=== PATIENT | male | born 1940 | race Caucasian/White ===

== ENCOUNTER 2018-04-25 11:45 | Inpatient (IN) | payer MEDICARE ==
[~2018-04-25] VITALS: Ht 172.7 cm; Wt 93.9 kg
[2018-04-25 11:45] VITALS: BP_SYST 120
[2018-04-25] MEDS ORDERED: NACL 0.9% 1,000 ML IV ONE (12:15)
[2018-04-25 12:57] LABS: BASOPHILS % (AUTO) 0.2 % (0.0-2.0); EOSINOPHILS # (AUTO) 0.2 K/uL (0.0-0.4); EOSINOPHILS % (AUTO) 3.9 % (0.0-4.0); HEMOGLOBIN 11.4 g/dL (14.0-18.0); LYMPHOCYTES # (AUTO) 0.1 K/uL (1.0-5.5); LYMPHOCYTES % (AUTO) 2.6 % (20.5-51.5); MEAN CORPUSCULAR HEMOGLOBIN 33 pg (27-31); MEAN CORPUSCULAR HGB CONC 33 % (32-36); MEAN CORPUSCULAR VOLUME 100 fL (79.0-98.0); MONOCYTES # (AUTO) 0.4 K/uL (0.0-1.0); NEUTROPHILS # (AUTO) 3.2 K/uL (1.8-7.7); NEUTROPHILS % (AUTO) 83.3 % (40.0-70.0); PLATELET COUNT (AUTO) 110 K/uL (130-430); RED BLOOD CELL COUNT(AUTO) 3.42 MIL/uL (4.2-6.2); RED CELL DISTRIBUTION WIDTH 16.3 % (9.0-15.0); WHITE BLOOD COUNT (AUTO) 3.9 K/uL (4.8-10.8)
[2018-04-25 13:04] LABS: ANION GAP 8 (5-15); CALCIUM 8.1 mg/dL (8.4-11.0); CHLORIDE 103 mmol/L (98-107); CREATININE 1.79 mg/dL (0.55-1.30); GLUCOSE 123 mg/dL (70-99); POTASSIUM 3.7 mmol/L (3.5-5.1); SODIUM SERUM 135 mmol/L (136-145); UREA NITROGEN, BLOOD 40 mg/dL (8-21)
[2018-04-25 13:13] LABS: PROTHROMBIN TIME 9.9 SECS (9.5-12.5)
[2018-04-25 13:19] LABS: ALANINE AMINOTRANSFERASE 23 U/L (12-78); ALBUMIN 2.7 g/dL (3.4-4.8); ASPARTATE AMINOTRANSFERASE 13 U/L (10-37); TOTAL BILIRUBIN 0.6 mg/dL (0.0-1.0)
[2018-04-25] MEDS ORDERED: PREDNISONE 20 MG TABLET PO ONE (13:30)
[2018-04-25] MEDS ORDERED: LORazepam 2 MG/ML VIAL IVP PRN (15:00)
[2018-04-25] MEDS ORDERED: POTASSIUM CHLORIDE 20 MEQ TAB.PRT.SR PO PRN (15:00)
[2018-04-25] MEDS ORDERED: MORPHINE 2 MG/ML INJ. SYRINGE IVP PRN ×2 (15:00)
[2018-04-25] MEDS ORDERED: ONDANSETRON HCL 4 MG/2 ML VIAL IVP PRN (15:00)
[2018-04-25] MEDS ORDERED: DOCUSATE SODIUM 100 MG CAPSULE PO PRN (15:00)
[2018-04-25] MEDS ORDERED: MAGNESIUM SULFATE 50 ML IV PRN (15:00)
[2018-04-25] MEDS ORDERED: ACETAMINOPHEN 325 MG TABLET PO PRN (15:00)
[2018-04-25] MEDS ORDERED: MUPIROCIN 2% TOPICAL OINTMENT 22 GM NS PRN (15:00)
[2018-04-25] MEDS ORDERED: BORT3.5V IV (15:03)
[2018-04-25] MEDS ORDERED: DITXL5 PO (15:03)
[2018-04-25] MEDS ORDERED: CALC-808 PO (15:03)
[2018-04-25] MEDS ORDERED: FLUT16SP16 NS (15:03)
[2018-04-25] MEDS ORDERED: DOCU-144 PO (15:03)
[2018-04-25] MEDS ORDERED: ZOLE4VIA IV (15:03)
[2018-04-25] MEDS ORDERED: HYDR12.585 PO (15:03)
[2018-04-25] MEDS ORDERED: ASPI-1153 PO (15:03)
[2018-04-25] MEDS ORDERED: SIMV20TA6 PO (15:03)
[2018-04-25] MEDS ORDERED: TIZA4TAB4 PO (15:03)
[2018-04-25] MEDS ORDERED: ACYC400T PO (15:03)
[2018-04-25] MEDS ORDERED: DEC4 PO (15:03)
[2018-04-25] MEDS ORDERED: HYT1 PO (15:03)
[2018-04-25] MEDS ORDERED: LENA2.5C PO (15:03)
[2018-04-25] MEDS ORDERED: LISI40TA4 PO (15:03)
[2018-04-25] MEDS ORDERED: PSYL3.4P6 PO (15:03)
[2018-04-25 15:05] VITALS: BP_SYST 167
[2018-04-25] MEDS ORDERED: ACYC400T5 PO (15:41)
[2018-04-25] MEDS: NACL 0.9% 1,000 ML IV SCH (15:46)
[2018-04-25] MEDS ORDERED: cefTRIAXone 1 GM in D5W 50 ML IV ONE (16:00)
[2018-04-25 16:40] VITALS: BP_SYST 103
[2018-04-25 20:00] VITALS: BP_SYST 102
[2018-04-25] MEDS: HEPARIN SODIUM,PORCINE 5000 UNITS/ML VIAL SUBCUT SCH (20:57)
[2018-04-25] MEDS ORDERED: ZOLPIDEM TARTRATE 5 MG TABLET PO PRN (21:00)
[2018-04-26] VITALS: BP_SYST 118
[2018-04-26] MEDS: NACL 0.9% 1,000 ML IV SCH ×2 (01:52→13:00)
[2018-04-26 05:18] LABS: BILIRUBIN,URINE NEGATIVE (NEGATIVE); BLOOD, URINE NEGATIVE (NEGATIVE); CLARITY/URINE CLEAR (CLEAR); COLOR,URINE YELLOW (YELLOW); GLUCOSE,URINE NEGATIVE (NEGATIVE); KETONES,URINE NEGATIVE (NEGATIVE); LEUKOCYTE ESTERASE ,URINE NEGATIVE (NEGATIVE); NITRITE, URINE NEGATIVE (NEGATIVE); PH,URINE 5.5 (5.0-8.0); PROTEIN URINE NEGATIVE (NEGATIVE); UROBILINOGEN,URINE 0.2 (0.2-1.0)
[2018-04-26 06:29] LABS: BASOPHILS % (AUTO) 0.1 % (0.0-2.0); EOSINOPHILS # (AUTO) 0.3 K/uL (0.0-0.4); EOSINOPHILS % (AUTO) 6.9 % (0.0-4.0); HEMATOCRIT 32.2 % (36-54); HEMOGLOBIN 10.8 g/dL (14.0-18.0); LYMPHOCYTES # (AUTO) 0.2 K/uL (1.0-5.5); LYMPHOCYTES % (AUTO) 4.8 % (20.5-51.5); MEAN CORPUSCULAR HEMOGLOBIN 34 pg (27-31); MEAN CORPUSCULAR HGB CONC 34 % (32-36); MEAN CORPUSCULAR VOLUME 100 fL (79.0-98.0); MONOCYTES # (AUTO) 0.2 K/uL (0.0-1.0); MONOCYTES % (AUTO) 5.2 % (1.7-9.3); NEUTROPHILS # (AUTO) 3.2 K/uL (1.8-7.7); PLATELET COUNT (AUTO) 116 K/uL (130-430); RED BLOOD CELL COUNT(AUTO) 3.22 MIL/uL (4.2-6.2); RED CELL DISTRIBUTION WIDTH 16.7 % (9.0-15.0); WHITE BLOOD COUNT (AUTO) 3.9 K/uL (4.8-10.8)
[2018-04-26 06:30] LABS: ANION GAP 4 (5-15); CALCIUM 7.7 mg/dL (8.4-11.0); CHLORIDE 109 mmol/L (98-107); CREATININE 0.87 mg/dL (0.55-1.30); GLUCOSE 98 mg/dL (70-99); POTASSIUM 3.4 mmol/L (3.5-5.1); SODIUM SERUM 139 mmol/L (136-145); UREA NITROGEN, BLOOD 22 mg/dL (8-21)
[2018-04-26 08:03] VITALS: BP_SYST 118
[2018-04-26] MEDS ORDERED: DECADRON 4 MG TABLET PO SCH (08:30)
[2018-04-26] MEDS ORDERED: NON-FORMULARY MEDICATION (Tizanidine Hcl (Zanaflex) 4 MG) PO SCH (08:30)
[2018-04-26] MEDS ORDERED: LORATADINE 10 MG TABLET PO SCH (09:00)
[2018-04-26] MEDS ORDERED: cefTRIAXone 1 GM in D5W 50 ML IV SCH (09:00)
[2018-04-26] MEDS ORDERED: FAMOTIDINE 20 MG TABLET PO SCH (09:00)
[2018-04-26] MEDS ORDERED: TRIAMCINOLONE ACETONIDE 0.025% 80 GM CREAM.GM. TP SCH (09:00)
[2018-04-26] MEDS ORDERED: ACYCLOVIR 400 MG TABLET PO SCH (09:00)
[2018-04-26] MEDS ORDERED: FLUTICASONE PROPIONATE 50 mCg/SPRAY 16 GM NS SCH (09:00)
[2018-04-26] MEDS ORDERED: DOCUSATE SODIUM 100 MG CAPSULE PO SCH (09:00)
[2018-04-26] MEDS ORDERED: ASPIRIN 81 MG TABLET(ECOTRIN) PO SCH (09:00)
[2018-04-26] MEDS: HEPARIN SODIUM,PORCINE 5000 UNITS/ML VIAL SUBCUT SCH (09:16)
[2018-04-26] MEDS ORDERED: methylPREDNISolone SOD SUCC/PF 62.5 MG/ML VIAL IVP ONE (10:00)
[2018-04-26] MEDS ORDERED: OXYBUTYNIN CHLORIDE 5 MG TABLET PO SCH (10:00)
[2018-04-26 12:00] VITALS: BP_SYST 135
[2018-04-26] MEDS ORDERED: LACT10SO6 PO (15:30)
[2018-04-26 15:31] VITALS: BP_SYST 138
[2018-04-26] MEDS ORDERED: methylPREDNISolone SOD SUCC/PF 62.5 MG/ML VIAL IVP SCH (18:00)
[2018-05-26] MEDS ORDERED: ZOLEDRONIC ACID 4 MG IV SCH (06:30)
== END 2018-04-26 17:10 | disposition home or self-care (01) | DRG 314 ==
LOC: SED 11:45 → SMU 14:23 → STU 14:50
PROVIDERS: ADMIT General Practice; ATTEND General Practice
DX: I95.9 Hypotension, unspecified (principal); N17.0 Acute kidney failure with tubular necrosis; C90.00 Multiple myeloma not having achieved remission; E44.0 Moderate protein-calorie malnutrition; E87.1 Hypo-osmolality and hyponatremia; D61.818 Other pancytopenia; L03.90 Cellulitis, unspecified; D63.8 Anemia in other chronic diseases classified elsewhere; E78.5 Hyperlipidemia, unspecified; I10 Essential (primary) hypertension; M47.812 Spondylosis without myelopathy or radiculopathy, cervical region; R21 Rash and other nonspecific skin eruption; E11.9 Type 2 diabetes mellitus without complications; E78.00 Pure hypercholesterolemia, unspecified; L23.9 Allergic contact dermatitis, unspecified cause; N40.0 Benign prostatic hyperplasia without lower urinary tract symptoms; Z80.1 Family history of malignant neoplasm of trachea, bronchus and lung; Z79.82 Long term (current) use of aspirin; Z79.899 Other long term (current) drug therapy; Z92.21 Personal history of antineoplastic chemotherapy; Z68.31 Body mass index [BMI] 31.0-31.9, adult
CPT/HCPCS: 36415; 71045; 80048; 80053; 81003; 83036; 83605; 83735-TC; 84484; 85025; 85610-TC; 85730-TC; 87040-TC; 87086; 93005; 96360; 99285; J0696; J1644; J2930; J7030; J7060; J7512